=== PATIENT | female | born 1995 | race Caucasian/White ===

== ENCOUNTER 2018-06-17 19:45 | Emergency (ER) | payer OTHER, BC ==
--- NOTE | 2018-06-17 20:37 | ED Physician Documentation ---
PD HPI SKIN - Stated complaint Stated Complaint: SHOT REACTION/[employer] - Chief complaint Chief Complaint: Allergic Rx - History obtained from History obtained from: Patient - History of Present Illness Timing - onset: Yesterday (she got several vaccines yesterday in both deltoids. Today having redness and swelling in left lateral upper arm at vaccine site. No general rash nor itch.) Timing - duration: Days (1) Timing - details: Abrupt onset, Still present Location: LUE Quality / character: Burning, Discolored (red), Raised, Swelling. No: Vesicular, Draining Associated symptoms: No: Fever, Myalgias, N/V/D Recently seen: Clinic (vaccines yesterday) Review of Systems Constitutional: denies: Fever, Chills, Myalgias Cardiac: denies: Chest pain / pressure Respiratory: denies: Dyspnea, Cough, Wheezing GI: denies: Nausea, Vomiting, Diarrhea Neurologic: denies: Altered mental status, Headache PD PAST MEDICAL HISTORY - Past Medical History Cardiovascular: None Endocrine/Autoimmune: None - Present Medications Home Medications: Ambulatory Orders Medication Instructions Recorded Confirmed Sulfamethox/Trimeth 800/160 1 each PO BID #14 tablet 06/17/18 [Bactrim Ds 800/160] - Allergies Allergies/Adverse Reactions: Allergies Allergy/AdvReac Type Severity Reaction Status Date / Time No Known Drug Allergies Allergy Verified 06/17/18 20:08 PD ED PE NORMAL - Vitals Vital signs reviewed: Yes - General General: Alert and oriented X 3, No acute distress, Well developed/nourished - Neck Neck: Supple, no meningeal sign, No adenopathy - Cardiac Cardiac: RRR, No murmur - Respiratory Respiratory: No respiratory distress, Clear bilaterally - Derm Derm: Normal color, Warm and dry - Extremities Extremities: Other (left upper arm laterally with rounded area of redness and swelling, tender. No streaking. No axillary nodes. ) Results - Vitals Vitals: Oxygen O2 Source Room air PD MEDICAL DECISION MAKING - ED course Complexity details: considered differential (strong local reaction vs "allergic" reaction. Would be very early for infection. Talked with her about that. Given weekend coming, I wrote Rx for abx in case worsens, though unlikely. ), d/w patient Departure - Departure Disposition: Home, Self Care Clinical Impression: Local reaction to immunization Qualifiers: Encounter type: initial encounter Qualified Code(s): T88.1XXA - Other complications following immunization, not elsewhere classified, initial encounter Condition: Stable Record reviewed to determine appropriate education?: Yes Instructions: ED Allergic Reaction Local Other Prescriptions: Sulfamethox/Trimeth 800/160 [Bactrim Ds 800/160] 1 each PO BID #14 tablet Comments: This looks like a strong local reaction and so treated with some anti-inflammatories and some Benadryl cool towels and we gave a dose of steroids which should last for a day or 2. That should taper this down over the next day or 2 and improve. It would be unlikely to be an infection this early and abrupt. However given the weekend coming I did write a prescription for an antibiotic in case this gets expanding or your regular or he develop any lymph nodes in the armpit area or other signs of infection that you could start on the antibiotic. The chance of this is pretty small and this should just instead improve over the next couple of days. Discharge Date/Time: 06/17/18 21:25
[2018-06-17] MEDS ORDERED: diphenhydrAMINE 25 MG CAPSULE PO STA (21:09)
[2018-06-17] MEDS ORDERED: DEXAMETHASONE 10 MG/ML VIAL PO STA (21:09)
[2018-06-17] MEDS ORDERED: NAPROXEN 250 MG TABLET PO STA (21:09)
[2018-06-17 21:21] VITALS: BP 115/84
== END 2018-06-17 21:25 | disposition home or self-care (01) ==
LOC: ED 19:45
DX: T88.1XXA Other complications following immunization, not elsewhere classified, initial encounter (principal)
CPT/HCPCS: 99283; A9270